=== PATIENT | female | born 1980 | race American Indian/Alaskan Native ===

== ENCOUNTER 2019-11-30 19:59 | Emergency (ER) | payer SELFPAY ==
--- NOTE | 2019-11-30 20:26 | Emergency Department Report ---
Chief Complaint: Dental/Oral Stated Complaint: TOOTHACHE/RT SIDE FACIAL PAIN Time Seen by Provider: 11/30/19 20:22 - HPI History of Present Illness: 39 y o female presents with dental pain x 1 week She denies injuries, trauma she states recently moved here and has no established care here PMH of DB She denies fever, chills, nausea, v, abd pain - ROS Review of Systems: As noted in HPI - Exam Vital Signs: Vital Signs 11/30/19 20:23 Temperature 99.2 F Pulse Rate 75 Respiratory 18 Rate Blood Pressure 130/93 O2 Sat by Pulse 98 Oximetry Physical Exam: Gen: AAO x 3 Mouth: no lesions noted, no gingival or facial edema, dental caries noted, missing dentures on right lower dents, tongue nml SKIN: no lesions, rash or indurations MSE screening note: Focused history and physical exam performed. Due to findings the following was ordered: ED Disposition for MSE Clinical Impression: Pain due to dental caries Disposition: MED SCREENING EXAM-LEFT Is pt being admited?: No Does the pt Need Aspirin: No Condition: Stable Instructions: Dental Caries (ED), Toothache (ED) Additional Instructions: follow up with dentist as discussed take medication as prescribed Prescriptions: Ibuprofen [Motrin 800 MG tab] 800 mg PO Q8HR PRN #30 tablet PRN Reason: Pain Amoxicillin [Trimox CAP] 500 mg PO Q8H #21 capsule Referrals: [facility] [Outside] - 3-5 Days [facility] [Outside] - 3-5 Days [facility] [Outside] - 3-5 Days Forms: Work/School Release Form(ED) Time of Disposition: 20:45
[2019-11-30 20:27] VITALS: BP 130/93
== END 2019-11-30 20:30 | disposition left against medical advice (07) ==
LOC: ED 19:59
DX: K08.89 Other specified disorders of teeth and supporting structures (principal); Z53.21 Procedure and treatment not carried out due to patient leaving prior to being seen by health care provider